=== PATIENT | female | born 1980 ===

== ENCOUNTER 2018-04-14 02:07 | Inpatient (IN) | payer BC ==
[2018-04-14] MEDS ORDERED: Lactated Ringer's 1,000 ML IV SCH (02:15)
[2018-04-14] MEDS ORDERED: Penicillin G 5 Million Unit Vial IVPB ONE ×2 (02:15→02:58)
[2018-04-14] MEDS ORDERED: Lactated Ringer's 1,000 ML IV ONE (02:15)
--- NOTE | 2018-04-14 02:24 | OBHP ---
Datetime: 04/14/2018 02:18 IP Adm Impression: Term, intrauterine IP Admit Plan: Admit to unit Admit Comment, IP Provider: @ 39.4 wks GA c/o ctx pain every 5 min since a few hours, increa sign intenstiy and frquency 10/28. pt preots pasisng of watery mucous plug earlier today. 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 PMH: dene sPSH: denies FHX: non contribotyr MEDS: PNV NKDA SHX: negaive x 3 FHX: non contribory A/P @ 39.4 wks GA in active labor admit to L+D npo, admission labs gbs porphyix pcn cont toco and efm pain managmne t Pelvic Type - PN: Adequate Extremities - PN: Normal Abdomen - PN: Normal Back - PN: Normal Breast - PN: Not Done Lungs - PN: Normal Heart - PN: Normal Thyroid - PN: Normal Neurologic - PN: Normal HEENT - PN: Normal General - PN: Normal Presentation-Admit: Vertex FHR - Baseline A Provider: 135 Membranes, Provider: Bulging Contraction Comments Provider: q 3 min Gestation - Est Wks by US: 39.4 IP Hx Assessment: The History has been Reviewed and is Current EGA AdmitDate IP: 39.4 Vital Signs Provider: Reviewed; Within Normal Limits IP Chief Complaint: Uterine contractions NICHD Variability Prov Fetus A: Moderate 6-25bpm FHR Category Provider Fetus A: Category I NICHD Decel Fetus A IP Provider: None Dilatation, Provider: 4 Effacement, Provider: 70 Station, Provider: -2 Genitourinary Exam: Normal DTRs - PN: Normal
[2018-04-14 03:23] LABS: BASO % 0.3 % (0.0-2.0); EOS # 0.1 K/uL (0.0-0.7); EOS % 0.8 % (0.0-4.0); HEMOGLOBIN 11.2 g/dL (11.0-16.0); LYMPH # 2.9 K/uL (1.0-4.3); LYMPH % 19.3 % (20.0-40.0); MEAN CELL VOLUME 88.9 fL (81.0-99.0); MEAN CORPUSCULAR HEMOGLOBIN 29.6 pg (27.0-31.0); MEAN CORPUSCULAR HGB CONC 33.3 g/dL (33.0-37.0); MEAN PLATELET VOLUME 9.7 fL (7.2-11.7); MONO # 0.8 K/uL (0.0-0.8); MONO % 5.3 % (0.0-10.0); NEUT # 11.3 K/uL (1.8-7.0); NEUT % 74.3 % (50.0-75.0); NRBC % 0.1 % (0.0-2.0); RBC 3.78 Mil/uL (3.80-5.20); RED CELL DISTRIBUTION WIDTH 14.2 % (11.5-14.5); WHITE BLOOD COUNT 15.2 K/uL (4.8-10.8)
[2018-04-14 03:33] LABS: BLOOD UREA NITROGEN 11 mg/dL (7-17); CALCIUM 9.1 mg/dl (8.6-10.4); GFR NON-AFRICAN AMERICAN > 60
[2018-04-14] MEDS ORDERED: Bupivacaine HCl/FentaNYL Cit 100 ML EPI ONE (03:47)
--- NOTE | 2018-04-14 03:52 | OBPN ---
Datetime: 04/14/2018 03:26 IP Progress Impression: Normal progression of labor; Rupture of membranes IP Progress Plan: Continue present management Membranes, Provider: Ruptured Amniotic Fluid Color, Provider: Clear FHR - Baseline A Provider: 130 Gestation - Est Wks by US: 39.4 Presentation-Admit: Vertex IP Progress Note Comment: pt seen adn exmained c/o fluid , and increasing pressure ve see oabve efm; cat i KETTY q 3 m in A/P @ 39.4 wks GA in active labor gbs postive gbs pospirhy anethis/ epidurla con tcurrent magnetn Vital Signs Provider: Within Normal Limits FHR Category Provider Fetus A: Category I NICHD Variability Prov Fetus A: Moderate 6-25bpm Dilatation, Provider: 5 Effacement, Provider: 80 Station, Provider: -2 NICHD Decel Fetus A IP Provider: None Datetime: 04/14/2018 02:18 Contraction Comments Provider: q 3 min
[2018-04-14 04:04] LABS: HEPATITIS B SURFACE AG Negative (NEGATIVE)
--- NOTE | 2018-04-14 07:09 | OBDS ---
MATERNAL INFORMATION Provider Comments: pt was fully dilated and pushing. atrumatic, spontanoeus delivery of head. Nuchal cord noted loosed x 1 reduced. Atramtic, sponatneojus delivery of atnerior followed by posterior raghavendra ulder followed by delivery of the body. body oral and nasal passags of the baby were bulb suctioned. umbilical cord was clamped and cut. Baby handed to mother on abdomen wtih RN assistance. cord glood a dn cord gases collected and sent x 2. spontaneous delivery of intact placenta with membrena. fundus f irm. good hemostaiss. Intact perienum. good hemostaiss, no complications live female infnat cephalic presentation agpars 9,9 weigh of 7lbs 7ounces ebl 200ml no complications LABOR SUMMARY EDC: 04/17/2018 00:00 No. Babies in Womb: 1 Attempted: No Labor Anesthesia: Epidural LABOR INFORMATION Onset of Labor: 04/14/2018 00:00 Complete Dilatation: 04/14/2018 05:23 Group B Beta Strep: Positive Antibiotics # of Doses: 2 Antibiotics Time of Last Dose: 604A Steroids Given: None MEMBRANES Membranes Rupture Method: Spontaneous Rupture of Membranes: 04/14/2018 03:23 Length of Rupture (hrs): 3.62 Amniotic Fluid Color: Clear Amniotic Fluid Amount: Scant STAGES OF LABOR Stage 1 hrs: 5 Stage 1 min: 23 Stage 2 hrs: 1 Stage 2 min: 37 Stage 3 hrs: 0 Stage 3 min: 2 Total Time in Labor hrs: 7 Total Time in Labor min: 2 BABY A INFORMATION Infant Delivery Date/Time: 04/14/2018 07:00 Method of Delivery: Vaginal Born in Route : No : N/A Forceps: N/A Vacuum Extraction: N/A Shoulder Dystocia : No SHOULDER DYSTOCIA BABY A Delivery Date/Time: 04/14/2018 07:00 PRESENTATION/POSITION BABY A Presentation: Cephalic Cephalic Presentation: Vertex Vertex Position: Left Occipital Anterior Breech Presentation: N/A PLACENTA INFORMATION BABY A Placenta Delivery Time : 04/14/2018 07:02 Placenta Method of Delivery: Spontaneous Placenta Status: Delivered SCORES BABY A Heart Rate 1 min: >100 bpm Resp Effort 1 min: Good Cry Reflex Irritability 1 min: Cough or Sneeze or Pulls Away Muscle Tone 1 min: Active Motion Color 1 min: Body [place], Extremities Blue SCORE 1 MIN: 9 Heart Rate 5 min: >100 bpm Resp Effort 5 min: Good Cry Reflex Irritability 5 min: Cough or Sneeze or Pulls Away Muscle Tone 5 min: Active Motion Color 5 min: Body [place], Extremities Blue SCORE 5 MIN: 9 INFORMATION BABY A Gestational Age at Delivery: 39.4 Gestational Status: Term Infant Outcome : Liveborn Infant Condition : Stable Infant Sex: Female IDENTIFICATION/MEDS BABY A ID Band Number: [id number] Sensor Number: [id number] WEIGHT/LENGTH BABY A Infant Birthweight (gms): 2730 Weight (lb): 6 Infant Weight (oz): 0 Length Inches: 19.00 Length cms: 48.3 CORD INFORMATION BABY A No. Cord Vessels: 3 Nuchal Cord : Around Neck x1, Loose Cord Blood Taken: Yes Suction: Mouth ASSESSMENT BABY A Complications: None Physical Findings at Delivery: Within Normal Limits Respirations: Appears Normal Car Storer/ALS Called : No Transferred To: Remains with Mother
[2018-04-14] MEDS ORDERED: Oxytocin 30 UNIT 30 UNITS/500 ML BAG IV ONE (07:10)
[2018-04-14] MEDS ORDERED: Benzocaine/Menthol 20%-0.5% Topical Spray (60 ml) TOP PRN (07:10)
[2018-04-14] MEDS ORDERED: Oxycodone/Acetaminophen 5/325 mg Tab PO PRN ×2 (07:10)
[2018-04-14] MEDS: Multiple Vitamins Tab PO SCH (10:11)
[2018-04-14 11:09] LABS: SQUAMOUS EPITHIAL < 1 /hpf (0-5); URINE BILIRUBIN NEGATIVE (NEGATIVE); URINE BLOOD NEGATIVE (NEGATIVE); URINE CLARITY Clear (Clear); URINE COLOR Straw (YELLOW); URINE GLUCOSE (UA) NORMAL (Normal); URINE LEUKOCYTE ESTERASE NEG Leu/uL (Negative); URINE PROTEIN NEGATIVE (NEGATIVE); URINE UROBILINOGEN NORMAL mg/dL (0.2-1.0)
[2018-04-15 00:04] VITALS: O2SAT 99
[2018-04-15 08:00] LABS: BASO % 0.3 % (0.0-2.0); EOS # 0.1 K/uL (0.0-0.7); EOS % 0.9 % (0.0-4.0); HEMOGLOBIN 10.3 g/dL (11.0-16.0); LYMPH # 3.4 K/uL (1.0-4.3); LYMPH % 24.6 % (20.0-40.0); MEAN CELL VOLUME 89.5 fL (81.0-99.0); MEAN CORPUSCULAR HEMOGLOBIN 29.6 pg (27.0-31.0); MEAN CORPUSCULAR HGB CONC 33.1 g/dL (33.0-37.0); MEAN PLATELET VOLUME 9.6 fL (7.2-11.7); MONO # 0.7 K/uL (0.0-0.8); NEUT # 9.7 K/uL (1.8-7.0); NEUT % 69.2 % (50.0-75.0); RBC 3.49 Mil/uL (3.80-5.20); RED CELL DISTRIBUTION WIDTH 14.4 % (11.5-14.5)
[2018-04-15 08:38] VITALS: RESP 18
[2018-04-15] MEDS: Multiple Vitamins Tab PO SCH (10:39)
[2018-04-15] MEDS ORDERED: Influenza Vaccine 60 mcg/0.5 mL SYR (4YR UP) IM ONE (17:22)
[2018-04-16 08:30] VITALS: BP 112/83; PULSE 86; TEMP 97.9
[2018-04-16] MEDS: Multiple Vitamins Tab PO SCH (09:30)
--- NOTE | 2018-04-16 13:06 | OBPPN ---
Datetime: 04/16/2018 13:01 PP Pain Prov: Within normal limits PP Nausea Prov: Denies PP Flatus Prov: Yes PP BM Prov: Yes PP Breasts Prov: Normal PP Heart Prov: Normal PP Lungs Prov: Normal PP Abdomen/Uterus Prov: Normal PP Lochia Prov: Normal PP Vulva/Perineum Prov: Normal PP CVA Tenderness Prov: Normal PP Extremities Prov: Normal PP C/S Incision Prov: Not Applicable PP Progress Prov: Normal PP Impression Prov: Normal progression PP Plan Prov: Continue present management PP Progress Note Prov: pt seen adn exmaiend with no compliants VS PE GEN NAD AA ox 3 RESP: Ctab/l CVS< RRR, +S1/S2 ABD: soft, nt, nd FUNDUS Firm, below level of umbiucs VE: minima lochia, non fouls smellign EXT: no calf tendenress, negative bettina's sign A/P s/ PPD #2 doing well dc home rto 6 weeks precautiong given IP PP Procedures: None Vital Signs Provider PP: Reviewed; Within Normal Limits
--- NOTE | 2018-04-16 13:08 | OBDCSUM ---
Datetime: 04/16/2018 08:06 Discharged to, Provider: Home Follow up at, Provider: Dr Baird Disch Instr Activity: Normal activity; May Shower Disch Instr Diet: Regular Discharge Diet restrict Prov: none Discharge Instructions, Provider: Routine instructions given Discharge Diagnosis, Provider: Term Delivered Discharge Time: 04/16/2018 11:30 Follow up in weeks, Provider: 6 weeks Disch Referrals: None Contraception discussed, Prov: Yes Disch Activity Restrictions: No exercising; No lifting; No sexual activity; Nothing in vagina - Inte rcourse, tampons, douche Discharge Comment, Provider: precautiosn givne Contraception after Delivery: Not Planning to Use
== END 2018-04-16 14:28 | disposition home or self-care (01) | DRG 807 ==
LOC: C.EROB 02:07 → C.4D 02:15 → C.4M 09:31
PROVIDERS: ADMIT Obstetrics & Gynecology; ATTEND Obstetrics & Gynecology
PROC: 10E0XZZ Delivery of Products of Conception, External Approach (ICD-10-PCS; principal; 2018-04-14)
DX: O69.81X0 Labor and delivery complicated by cord around neck, without compression, not applicable or unspecified (principal); O99.824 Streptococcus B carrier state complicating childbirth; Z3A.39 39 weeks gestation of pregnancy; Z37.0 Single live birth